=== PATIENT | male | born 1975 | race Caucasian/White ===

== ENCOUNTER 2021-03-30 09:00 | Day surgery (SDC) | payer OTHER ==
[~2021-03-30 09:00] MED LIST: CRESTOR10 MG PO; LOTREL 5-20 MG1 CAP PO
[2021-03-30] MEDS ORDERED: MIRALAX17 GM PO (12:53)
[2021-03-30] MEDS ORDERED: NEURONTIN300 MG PO (12:53)
[2021-03-30] MEDS ORDERED: ULTRAM50 MG PO (12:53)
[2021-03-30] MEDS ORDERED: TYLENOL ARTHRI650 MG PO (12:53)
== END 2021-03-30 15:00 | disposition home or self-care (01) ==
LOC: CIR.AMB 09:00
PROVIDERS: ATTEND Surgery
DX: K42.0 Umbilical hernia with obstruction, without gangrene (principal); Z20.822 Contact with and (suspected) exposure to COVID-19